=== PATIENT | male | born 1980 | race Two or more races ===

== ENCOUNTER 2017-05-01 14:25 | Emergency (ER) | payer OTHER ==
[~2017-05-01] VITALS: Ht 180.3 cm; Wt 74.8 kg
[2017-05-01 14:27] VITALS: BP 121/77
[2017-05-01] MEDS ORDERED: IBUPROFEN600 MG ORAL (15:26)
[2017-05-01 15:35] VITALS: BP 125/80
--- NOTE | 2017-05-01 21:32 | Emergency Room Report ---
History of Present Illness General Chief Complaint: Lower Extremity Injury Source: Patient (LUISITO RODAS) Present Illness HPI The patient is a 36 old male presenting for left ankle pain. Pain began one week prior after twisting ankle during soccer. Pain has continued and is an 8/ 10 dull ache. Does not radiate. Worse with touch and movement. He has used ice which has helped. He denies any other symptoms including N, V, F, chills, rash, calf pain/swelling (LUISITO RODAS) Allergies: Coded Allergies: SHELLFISH DERIVED (Verified Allergy, Severe, Shortness of Breath, 05/01/17) Patient History Past Medical History: see triage record Pertinent Family History: none Reviewed Nursing Documentation: PMH: Agreed, PSxH: Agreed (LUISITO RODAS) Nursing Documentation-PMH Past Medical History: No Stated History (LUISITO RODAS) Review of Systems All Other Systems: negative except mentioned in HPI (LUISITO RODAS) Physical Exam Vital Signs Date Time Temp Pulse Resp B/P (MAP) Pulse Ox O2 Delivery O2 Flow Rate FiO2 05/01/17 14:27 98.1 49 18 121/77 98 Room Air Sp02 EP Interpretation: reviewed, normal General Appearance: no apparent distress, alert, GCS 15, non-toxic Head: normocephalic, atraumatic Eyes: bilateral eye normal inspection, bilateral eye PERRL ENT: hearing grossly normal, normal pharynx, no angioedema, normal voice Musculoskeletal: back normal, gait/station normal, normal range of motion, no calf tenderness, swelling - L lateral ankle, tender - L lateral ankle Neurologic: alert, oriented x3, responsive, motor strength/tone normal, sensory intact, speech normal Psychiatric: judgement/insight normal, memory normal, mood/affect normal, no suicidal/homicidal ideation Skin: normal color, no rash, warm/dry, well hydrated (LUISITO RODAS) Procedures Splinting Splinting : Consent: Verbal Location: L ankle Pre-Made Type: KEYSHAWN wrap Pre-Proc Neuro Vasc Exam: normal Post-Proc Neuro Vasc Exam: normal Patient Tolerated: Well Complications: None (LUISITO RODAS.Tone) Medical Decision Making PA Attestation Dr. Childers is my supervising physician. Patient management was discussed with my supervising physician (LUISITO RODAS) Diagnostic Impression: Primary Impression: Left ankle sprain Qualified Codes: S93.402A - Sprain of unspecified ligament of left ankle, initial encounter ER Course The patient is a 36 old male presenting for left ankle pain Ddx considered include but not limited to sprain/strain, fracture, contusion Physical exam: Vitals within normal limits. No apparent distress Left ankle: There is tenderness to palpation and edema over the left lateral malleolus. Limited active range of motion. Sensation intact to light touch. X-ray of the left ankle is unremarkable for acute findings Left ankle placed in KEYSHAWN wrap and the patient is provided crutches. ER precautions are given. Patient given prescription for Motrin and will follow up with primary care physician. (LUISITO RODAS) Other X-Ray Diagnostic Results Other X-Ray Diagnostic Results : X-Ray ordered: L ankle # of Views/Limited Vs Complete: 3 View Indication: Pain EP Interpretation: Yes PA Xray: Interpretation reviewed, by supervising MD, and agrees with findings. Interpretation: no dislocation, no soft tissue swelling, no fractures Impression: No acute disease Electronically Signed by: Luisito Rodas PA-C (LUISITO RODAS) Other X-Ray Diagnostic Results : Electronically Signed by: Grey documentation reviewed by me and is accurate, Earl Childers MD. (Earl Childers M.D.) Last Vital Signs Date Time Temp Pulse Resp B/P (MAP) Pulse Ox O2 Delivery O2 Flow Rate FiO2 05/01/17 15:35 98.3 73 20 125/80 100 Room Air Status: improved (LUISITO RODASARubi) Disposition: HOME, SELF-CARE Condition: Improved Scripts Ibuprofen* (MOTRIN*) 600 Mg Tablet 600 MG ORAL Q8H Y for For Pain, #30 TAB 0 Refills Prov: LUISITO RODAS 05/01/17 Referrals: MARII ENG,REFERRING (PCP) Patient Instructions: Ankle Sprain Additional Instructions: I discussed my findings with the patient. All questions and concerns have been answered. Treatment and medication compliance have been addressed. I advised the patient that they need to follow up with PMD in 3-5 days. Return to ED if pain remains or worsens, numbness or tingling occurs, new rash is noticed, fever is noticed, or if needed for any reason. Patient verbalized understanding of discharge instructions. LUISITO RODAS May 01, 2017 21:32 Earl Childers M.D. May 02, 2017 03:28
--- NOTE | 2017-05-04 10:32 | Diagnostic Imaging Report ---
Indication: Pain Technique: XRAY ANKLE MIN 3VWS LEFT Comparison: None Findings: There is no acute fracture or dislocation. Ankle mortise is intact on these nonstress views. There is small ankle joint effusion. No radiopaque foreign body is seen. Impression: No acute fracture or dislocation.
== END 2017-05-01 15:30 | disposition home or self-care (01) ==
LOC: EMR 15:30
DX: S93.402A Sprain of unspecified ligament of left ankle, initial encounter (principal); Z91.013 Allergy to seafood; X50.1XXA Overexertion from prolonged static or awkward postures, initial encounter; Y93.66 Activity, soccer; Y92.9 Unspecified place or not applicable
CPT/HCPCS: 99283

== ENCOUNTER 2018-07-19 15:05 | Emergency (ER) | payer OTHER ==
[~2018-07-19] VITALS: Ht 180.3 cm; Wt 75.7 kg
[~2018-07-19 15:05] MED LIST: IBUPROFEN600 MG ORAL
[2018-07-19 15:09] VITALS: BP 119/83
[2018-07-19] MEDS ORDERED: NKM (15:14)
--- NOTE | 2018-07-19 15:18 | NUR ---
ED Nurse Note: Pt c/o flu like symptoms such as body aches, headaches and coughing x 3 days. Afebrile upon triage. Pt is AAO x4, ambulates with unlabored breathing.
[2018-07-19] MEDS ORDERED: TYLENOL EXTRA500 MG ORAL (15:53)
[2018-07-19] MEDS ORDERED: AMOXICILLIN500 MG ORAL (15:53)
--- NOTE | 2018-07-19 15:53 | Emergency Room Report ---
History of Present Illness General Chief Complaint: Flu Like Symptoms Source: Patient Present Illness HPI 37-year-old male patient presents the ER complaining of flulike symptoms for the past 4 days. Patient reports subjective fever at home, denies fever currently. Also complaining of cough without sputum. Denies hemoptysis. Denies history of heart disease or asthma. Denies chest pain or shortness of breath. Also complaining of sore throat. Reports that he "saw stuff"in his throat that looks like infection. Also complaining of ulcers in his mouth that has since resolved. Reports pain with swallowing. Denies abdominal pain. Denies vomiting or diarrhea. States has been taking NyQuil with mild relief of symptoms denies other aggravating or relieving factors. Reports multiple sick contacts at home with similar symptoms. Allergies: Coded Allergies: SHELLFISH DERIVED (Verified Allergy, Severe, Shortness of Breath, 05/01/17) Patient History Past Medical History: see triage record Reviewed Nursing Documentation: PMH: Agreed; PSxH: Agreed Nursing Documentation-PMH Past Medical History: No Stated History Review of Systems All Other Systems: negative except mentioned in HPI Physical Exam Vital Signs Date Time Temp Pulse Resp B/P (MAP) Pulse Ox O2 Delivery O2 Flow Rate FiO2 07/19/18 15:09 99.3 66 19 119/83 95 Room Air Sp02 EP Interpretation: reviewed, normal General Appearance: well appearing, no apparent distress, alert, GCS 15, non- toxic Head: normocephalic, atraumatic Eyes: bilateral eye normal inspection, bilateral eye PERRL ENT: hearing grossly normal, normal pharynx, no angioedema, normal voice, TMs + canals normal, uvula midline, moist mucus membranes, tonsillar swelling, pharyngeal erythema, tonsillar exudate, other - uvula midline, no canker sores, no mouth lesions, no blisters, no ulcers Neck: full range of motion, no meningismus, no bony tend Respiratory: lungs clear, normal breath sounds, no rhonchi, no respiratory distress, no accessory muscle use, no wheezing, speaking full sentences Cardiovascular #1: regular rate, rhythm, no edema Gastrointestinal: non tender, soft, no mass, non-distended, no guarding, no rebound Musculoskeletal: back normal, digits/nails normal, gait/station normal, normal range of motion, non-tender Neurologic: alert, oriented x3, responsive, motor strength/tone normal, sensory intact Psychiatric: mood/affect normal Skin: no rash Lymphatic: adenopathy - Cervical Medical Decision Making PA Attestation Dr. Childers is my supervising Physician whom patient management has been discussed with. Diagnostic Impression: Primary Impression: Tonsillitis Additional Impression: Influenza-like symptoms ER Course Pt presents to ED c/o sore throat. DDX considered but are not limited to influenza, viral URI, strep throat, pharyngitis, tonsillitis, influenza, pneumonia, strep throat, rhinitis, sinusitis, otitis media, otitis externa. no uvula deviation, no neck stiffness, no stridor, no tripoding, low suspicion for peritonsillar abscess. VITAL SIGNS are WNL, patient is afebrile ER COURSE: tonsillar exudates, pharyngeal erythema, lymphadenopathy, likely pharyngitis. Will provide antibiotic treatment. Continue taking Tylenol for relief of symptoms. saltwater gargles. Drink plenty of fluids. Symptomatic treatment. Lungs clear to auscultation, no wheezes, rhonci or rales. patient afebrile. Low suspicion for pneumonia, will not order CXR at this time. no tonsillar exudates, no pharyngeal erythema, history of cough, no fever, no stridor, uvula midline, low suspicion for peritonsillar abscess. Likely viral etiology of symptoms. Symptomatic treatment. Followup with PCP for further treatment and/or referral as needed. ER precautions given. DISCHARGE: Rx provided for amoxicillin -Rx given for Acetaminophen for fever/pain. At this time pt is stable for d/c to home. Patient resting comfortably, in no acute distress, nontoxic appearing, talking without difficulty Patient to take medications as instructed. Will provide with patient care instructions and any necessary prescriptions. Care plan and follow-up instructions provided. Patient instructed to follow-up with primary care provider in 3 - 5 days. Patient questions asked and answered. ER precautions given. Patient instructed to return to ER immediately for any new or worsening of symptoms including but not limited to fever, SOB, difficulty swallowing. - Please note that this Emergency Department Report was dictated using [employer] scala developer technology software, occasionally this can lead to erroneous entry secondary to interpretation by the dictation equipment. Last Vital Signs Date Time Temp Pulse Resp B/P (MAP) Pulse Ox O2 Delivery O2 Flow Rate FiO2 07/19/18 15:17 66 19 Room Air 07/19/18 15:09 99.3 119/83 95 Disposition: HOME, SELF-CARE Condition: Stable Scripts Acetaminophen* (TYLENOL EXTRA STRENGTH*) 500 Mg Tablet 500 MG ORAL Q8H PRN for Prn Headache/Temp > 101, #30 TAB 0 Refills Prov: Jose Carlisle 07/19/18 Amoxicillin* (AMOXIL*) 500 Mg Capsule 500 MG ORAL EVERY 8 HOURS for 7 Days, #21 CAP Prov: Jose Carlisle 07/19/18 Patient Instructions: Influenza, Adult, [id number], Tonsillitis, [id number] Additional Instructions: Followup with primary care provider in 3 -5 days. Salt water gargles Take Tylenol for pain and fever symptoms Drink plenty of water. Take medications as directed. Patient questions asked and answered. ER precautions given, patient instructed to return to ER immediately for any new or worsening of symptoms including but not limited to intractable vomiting, difficulty breathing, inability to eat. Jose Carlisle Jul 19, 2018 15:53
[2018-07-19 16:05] VITALS: BP 122/74
--- NOTE | 2018-07-19 16:05 | NUR ---
ED Nurse Note: Pt cleared by health Care Provider for discharge. DC instructions/prescription was given and explained to pt and verbalized understanding of teachings. All medical devices such as ID band removed. Pt is AAO x4, ambulatory and left with all personal belongings.
== END 2018-07-19 16:05 | disposition home or self-care (01) ==
LOC: EMR 15:49
DX: J03.90 Acute tonsillitis, unspecified (principal); Z91.013 Allergy to seafood
CPT/HCPCS: 99283